=== PATIENT | female | born 1995 | race Caucasian/White ===

== ENCOUNTER 2016-12-12 12:43 | Emergency (ER) | payer OTHER ==
[2016-12-12 12:51] VITALS: BP 115/68
--- NOTE | 2016-12-12 13:45 | XRAY Preliminary Report ---
Exam: XR Wrist 4 View RT IMPRESSION: Normal wrist radiography. [facility] SITE ID: [id number]
--- NOTE | 2016-12-12 13:48 | XRAY Report ---
EXAM: RIGHT WRIST RADIOGRAPHY EXAM DATE: 12/12/2016 01:24 PM. CLINICAL HISTORY: Fall with wrist injury. COMPARISON: None. TECHNIQUE: 4 views. FINDINGS: Bones: Normal. No fractures or bone lesions. Joints: Normal. No subluxations. Soft Tissues: Normal. No soft tissue swelling. IMPRESSION: Normal wrist radiography. [facility] Referring Provider Line: [phone] SITE ID: [id number]
--- NOTE | 2016-12-12 14:19 | ED Physician Documentation ---
PD HPI UPPER EXT INJURY - Stated complaint Stated Complaint: R WRIST INJ - Chief complaint Chief Complaint: Ext Problem - History obtained from History obtained from: Patient - History of Present Illness Location: Right, Wrist (FOOSH earlier today, no other inj. Points to medial wrist as site of pain and cannot range.) Review of Systems Constitutional: denies: Fever, Chills : denies: Now EGA Musculoskeletal: denies: Neck pain, Back pain PD PAST MEDICAL HISTORY - Past Medical History Past Medical History: No - Past Surgical History Past Surgical History: No - Present Medications Home Medications: Ambulatory Orders Medication Instructions Recorded Confirmed No Known Home Medications [No 11/20/12 12/12/16 Known Home Medications] - Allergies Allergies/Adverse Reactions: Allergies Allergy/AdvReac Type Severity Reaction Status Date / Time No Known Drug Allergies Allergy Verified 12/12/16 14:06 - Social History Does the pt smoke?: No Smoking Status: Never smoker Does the pt drink ETOH?: No Does the pt have substance abuse?: No - Immunizations Immunizations are current?: Yes PD ED PE NORMAL - Vitals Vital signs reviewed: Yes - General General: Alert and oriented X 3, No acute distress - Neck Neck: Supple, no meningeal sign, No bony TTP - Extremities Extremities: Other (Focally tender right distal ulna without deformity. She can move it passively but not actively. MVI in the hand.) - Neuro Neuro: Alert and oriented X 3, Normal speech - Psych Psych: Normal mood, Normal affect Results - Vitals Vitals: Vital Signs - 24 hr 12/12/16 12:49 Temperature 36.7 C Heart Rate 82 Respiratory 18 Rate Blood Pressure 115/68 O2 Saturation 98 Oxygen O2 Source Room air - Rads (name of study) Right wrist x-ray Radiology: EMP read contemporaneously (Negative) Departure - Departure Disposition: 01 Home, Self Care Clinical Impression: Right wrist sprain Qualifiers: Encounter type: initial encounter Qualified Code(s): S63.501A - Unspecified sprain of right wrist, initial encounter Condition: Good Record reviewed to determine appropriate education?: Yes Instructions: ED Splint Care Velcro, ED Sprain Wrist Comments: Tylenol or ibuprofen as needed for pain. Recheck with your doctor in 1 week if not better. Forms: Activity restrictions
== END 2016-12-12 14:27 | disposition home or self-care (01) ==
LOC: ED 12:43
DX: S63.501A Unspecified sprain of right wrist, initial encounter (principal); W01.0XXA Fall on same level from slipping, tripping and stumbling without subsequent striking against object, initial encounter
CPT/HCPCS: 99283